=== PATIENT | male | born 1990 | race Two or more races ===

== ENCOUNTER 2016-09-02 15:26 | Emergency (ER) | payer OTHER ==
[~2016-09-02] VITALS: Ht 162.6 cm; Wt 83.9 kg
[~2016-09-02 15:26] MED LIST: ALPR0.5T; OME40GT
[2016-09-02 15:39] VITALS: BP 150/100
== END 2016-09-02 18:47 | disposition left against medical advice (07) ==
LOC: ER 15:30
DX: F41.9 Anxiety disorder, unspecified (principal); R00.2 Palpitations; Z53.21 Procedure and treatment not carried out due to patient leaving prior to being seen by health care provider
CPT/HCPCS: 93005